=== PATIENT | female | born 1935 | race Caucasian/White ===

== ENCOUNTER 2020-11-23 18:23 | Emergency (ER) | payer MEDICARE ==
[~2020-11-23] VITALS: Ht 160 cm; Wt 55.0 kg
--- NOTE | 2020-11-23 19:03 | NUR ---
This RN called [facility]- they report the pt had COVID vaccine on , was not feeling well all day Monday or Monday, fell Monday night, asked for XR Monday but the portable XR service could not come out until today. Today the portable XR company Xrayed pt and found right hip fracture then sent her here. [facility] staff reports they will touch base with pt's daughter and update her.
--- NOTE | 2020-11-23 20:45 | NUR ---
Pts daughter at bedside, visiting with this RN. Reports pt is a former smoker, started developing dementia about 10 years ago, hx of right knee replacement, glaucoma, and multiple falls.
--- NOTE | 2020-11-23 22:02 | NUR ---
Pt's daughter at bedside. Pt resting in bed, have asked pt several times if she is in pain, pt does not answer but is showing no signs of pain such as fidgeting, grimacing, etc. Pt appears to be resting comfortable, alert, breathing equal and non-labored.
--- NOTE | 2020-11-23 22:23 | NUR ---
This carpenter with pt's daughter at bedside. Pt alert but calm and resting in bed.
--- NOTE | 2020-11-23 22:24 | NUR ---
Pt will not be going back to [facility] with prescriptions but will be given a pain med before leaving in [facility] and from there will see her doctor at [facility].
[2020-11-23] MEDS ORDERED: KETOROLAC 30 MG/1 ML IM ONE (22:30)
[2020-11-23] MEDS ORDERED: KETOROLAC 30 MG/1 ML ONE (22:58)
[2020-11-23] MEDS ORDERED: PLEASE ENTER ALLERGIES MC SCH (23:00)
[2020-11-23] MEDS ORDERED: FENTANYL PF 100 MCG/2ML IVPush ONE (23:00)
[2020-11-23 23:03] VITALS: BP 116/47
--- NOTE | 2020-11-23 23:08 | NUR ---
Toradol given IM. Pt lying in bed but stating "I want to go to my room". RN and pt's daughter at bedside.
--- NOTE | 2020-11-23 23:18 | NUR ---
Pt reports she has to go to the bathroom. External fem cath applied.
--- NOTE | 2020-11-23 23:29 | NUR ---
ERICKA here to transport pt. back to [facility]. Pt's daughter agrees with and understands discharge plan and instructions.
== END 2020-11-23 23:31 | disposition home or self-care (01) ==
LOC: ED 21:23
DX: S32.591A Other specified fracture of right pubis, initial encounter for closed fracture (principal); R41.82 Altered mental status, unspecified; W18.30XA Fall on same level, unspecified, initial encounter; Y92.009 Unspecified place in unspecified non-institutional (private) residence as the place of occurrence of the external cause; Y93.89 Activity, other specified; Y99.8 Other external cause status
CPT/HCPCS: 72192; 96372; 99284; J1885